=== PATIENT | female | born 1995 | race Caucasian/White ===

== ENCOUNTER 2017-09-06 13:56 | Emergency (ER) | payer MEDICAID ==
[2017-09-06 18:22] LABS: HCG SERUM NEGATIVE (NEGATIVE)
== END 2017-09-06 19:14 | disposition home or self-care (01) ==
LOC: D.ER 13:56
PROVIDERS: Physician Assistant
DX: R07.81 Pleurodynia (principal); S60.222A Contusion of left hand, initial encounter; V49.9XXA Car occupant (driver) (passenger) injured in unspecified traffic accident, initial encounter; Y93.89 Activity, other specified; Y92.89 Other specified places as the place of occurrence of the external cause; M25.571 Pain in right ankle and joints of right foot; R51 Headache